=== PATIENT | female | born 1995 | race Caucasian/White ===

== ENCOUNTER 2016-10-21 20:38 | Emergency (ER) | payer OTHER ==
[~2016-10-21] VITALS: Ht 160 cm; Wt 55.3 kg
[~2016-10-21 20:38] MED LIST: [UNRECOGNIZED DRUG - CODE] PO
[2016-10-21 20:43] VITALS: BP 136/57
[2016-10-21 21:48] LABS: BILIRUBIN,URINE NEGATIVE (NEGATIVE); BLOOD, URINE NEGATIVE (NEGATIVE); LEUKOCYTE ESTERASE ,URINE 1+ (NEGATIVE); NITRITE, URINE NEGATIVE (NEGATIVE); PH,URINE 7.5 (5.0-9.0); PROTEIN,URINE NEGATIVE (NEGATIVE); UGLUCOSE NEGATIVE (NEGATIVE); UROBILINOGEN,URINE 0.2 EU/dL (0.2 - 1)
[2016-10-21 21:51] LABS: APPEARANCE,URINE CLOUDY (CLEAR); COLOR,URINE YELLOW (YELLOW)
[2016-10-21 22:00] LABS: RBC,URINE NONE SEEN /HPF (0-5)
[2016-10-21 22:01] LABS: BACTERIA,URINE 2+ /HPF (None Seen); SQUAMOUS EPITHELIAL CELL,UR 4-10 (MOD) /LPF (0-3 (FEW))
--- NOTE | 2016-10-22 00:26 | NUR ---
TO ER BED 3
--- NOTE | 2016-10-22 00:35 | NUR ---
NPATIENT PRESENTS TO ED WITH C/O LOWER PELVIC PAIN X 1 WEEK. PT IS 12 WEEKS AND IS CONCERNED, PAIN HAS BEEN OFF AND ON FOR 1 WEEK. PT DENIES ANY SPOTTING OR PAINFUL URINATION. DENIES N/V/D; SKIN IS PINK/WARM/DRY; AAOX4 WITH EVEN AND STEADY GAIT; LUNGS CLEAR BL; HR EVEN AND REGULAR; PT DENIES ANY FEVER, CP, SOB, OR COUGH AT THIS TIME; PATIENT STATES PAIN OF 3/10 AT THIS TIME; VSS; PATIENT POSITIONED FOR COMFORT; HOB ELEVATED; BEDRAILS UP X2; BED DOWN. ER MD MADE AWARE OF PT STATUS.
[2016-10-22 01:42] VITALS: BP 136/57
== END 2016-10-22 01:42 | disposition home or self-care (01) ==
LOC: MED 20:38
DX: O23.41 Unspecified infection of urinary tract in pregnancy, first trimester (principal); Z3A.13 13 weeks gestation of pregnancy
CPT/HCPCS: 81001; 81025; 87086; 99284

== ENCOUNTER 2016-12-09 17:05 | Observation (INO) | payer OTHER ==
[2016-12-09 17:57] VITALS: BP 105/66
== END 2016-12-09 19:30 | disposition home or self-care (01) ==
LOC: MLD 17:05
PROVIDERS: ADMIT Obstetrics & Gynecology; ATTEND Obstetrics & Gynecology
DX: O46.92 Antepartum hemorrhage, unspecified, second trimester (principal); O26.892 Other specified pregnancy related conditions, second trimester; M54.9 Dorsalgia, unspecified; Z3A.20 20 weeks gestation of pregnancy
CPT/HCPCS: 76805; G0378; Q0092; 59025; 81000

== ENCOUNTER 2022-10-15 19:10 | Emergency (ER) | payer OTHER ==
[~2022-10-15] VITALS: Ht 160 cm; Wt 66.2 kg
[2022-10-15 19:26] VITALS: BP 122/87
--- NOTE | 2022-10-15 19:41 | NUR ---
LIBERTAD MCDOWELL examining patient.
[2022-10-15 20:23] VITALS: BP 127/61
--- NOTE | 2022-10-15 20:23 | NUR ---
Patient discharged with v/s stable. Written and verbal after care instructions given and explained. Patient verbalized understanding. Ambulatory with steady gait. All questions addressed prior to discharge. Advised to follow up with PMD.
== END 2022-10-15 20:23 | disposition home or self-care (01) ==
LOC: MED 19:10
DX: L50.9 Urticaria, unspecified (principal); T78.40XA Allergy, unspecified, initial encounter; X58.XXXA Exposure to other specified factors, initial encounter
CPT/HCPCS: 99284